=== PATIENT | female | born 1980 | race Caucasian/White ===

== ENCOUNTER → 2017-08-13 | Outpatient (CLI) | payer OTHER | LOC: BMCIMAGING 15:36 | PROVIDERS: ATTEND Podiatrist Foot & Ankle Surgery | DX: M79.671 Pain in right foot (principal); M79.672 Pain in left foot ==

== ENCOUNTER → 2018-04-16 | Outpatient (CLI) | payer OTHER | LOC: BMCIMAGING 07:15 | PROVIDERS: ATTEND Family Medicine | DX: Z30.09 Encounter for other general counseling and advice on contraception (principal); Z97.5 Presence of (intrauterine) contraceptive device ==